=== PATIENT | female | born 1950 | race Two or more races ===

== ENCOUNTER 2020-11-29 05:56 | Emergency (ER) | payer OTHER ==
[~2020-11-29] VITALS: Ht 157.5 cm; Wt 87.1 kg
[2020-11-29 06:03] VITALS: BP 170/70
== END 2020-11-29 08:56 | disposition home or self-care (01) ==
LOC: ER 05:56
DX: Z02.89 Encounter for other administrative examinations (principal); I10 Essential (primary) hypertension; Z90.49 Acquired absence of other specified parts of digestive tract; Z90.710 Acquired absence of both cervix and uterus; Z20.822 Contact with and (suspected) exposure to COVID-19
CPT/HCPCS: 36415; 87426

== ENCOUNTER 2023-08-21 06:00 | Observation (INO) | payer OTHER ==
[~2023-08-21] VITALS: Ht 154.9 cm; Wt 79.7 kg
[2023-08-21] VITALS (13 sets, daily range): BP systolic 100–150; BP diastolic 45–84; PULSE 51–68; RESP 1–20; TEMP 97.4–97.8; O2SAT 95–100
[~2023-08-21 06:00] MED LIST: ACET-1304 PO; ATEN-60 PO; ATOR10TA PO; CHOL100047 PO; GABA-1250 PO; METF-489 PO; MULT-1018 OR; SERT25TA28 PO; TRAZ-228 PO
[2023-08-21] MEDS: TRANEXAMIC ACID 20 ML ONE (06:56)
[2023-08-21] MEDS: VANCOMYCIN HCL 1000 MG VL ONE (06:57)
[2023-08-21] MEDS ORDERED: MORPHINE SULF PF 5 MG/10 ML VIAL ONE (07:00)
[2023-08-21] MEDS ORDERED: KETOROLAC TROMETH 30 MG/ML 1ML VIAL ONE (07:00)
[2023-08-21] MEDS: ceFAZolin 2 GM/D5W50ml 50 ML IV ONE (07:12)
[2023-08-21] MEDS: BUPIVACAINE 0.25% INJ 50ML VIAL ONE (07:12)
[2023-08-21] MEDS: TETRACAINE 1% INJ 2 ML VIAL IJ ONE (07:27)
[2023-08-21] MEDS ORDERED: KETAMINE 50mg/ML 1ml syringe ONE (07:40)
[2023-08-21] MEDS ORDERED: PROPOFOL 10 MG/ML 20 ML IV ONE (07:40)
[2023-08-21] MEDS ORDERED: MIDAZOLAM HCL 2MG/2ML 2ml VIAL (1mg/ml) ONE (07:53)
[2023-08-21] MEDS ORDERED: fentaNYL CITRATE 100 MCG/2 ML VL ONE (07:53)
[2023-08-21] MEDS ORDERED: diphenhdrAMINE HCL 50 MG/1 ML VL IV PRN (09:15)
[2023-08-21] MEDS ORDERED: HYDROmorphone HCL 2 MG/ML VL/or syr IV PRN ×2 (09:15→09:30)
[2023-08-21] MEDS ORDERED: DexAMETHasone SOD PHOS 10MG/1ML VIAL INJ IV PRN (09:15)
[2023-08-21] MEDS ORDERED: NALOXONE HCL 0.4 MG/ML VIAL IV PRN (09:15)
[2023-08-21] MEDS ORDERED: ONDANSETRON HCL 4 MG/2 ML VIAL IV PRN ×2 (09:15→09:30)
[2023-08-21] MEDS ORDERED: NITROGLYCERIN 0.4 MG SL TAB SL PRN (09:30)
[2023-08-21] MEDS ORDERED: MORPHINE SULFATE INJ 2 MG/ml SYRG IV PRN (09:30)
[2023-08-21] MEDS ORDERED: CEFEPIME 1GM/ 50ML 50 ML IV SCH (10:00)
[2023-08-21] MEDS: LACTATED RINGER'S 1,000 ML IV SCH (14:55)
[2023-08-21] MEDS: SODIUM CHLOR 0.9% PF (SALINE LOCK) 10ML VIAL/SYR IV SCH (15:00)
[2023-08-21] MEDS: DOCUSATE SOD 100 MG CAP PO SCH (15:01)
[2023-08-21] MEDS: MULTIPLE VITAMIN TAB PO SCH (15:01)
[2023-08-21] MEDS: ATENOLOL 25 MG TAB PO SCH (15:01)
[2023-08-21] MEDS: ACCU-CHEK COMFORT CURVE STRIP VI SCH (15:02)
[2023-08-21] MEDS ORDERED: ONDANSETRON HCL 4 MG/2 ML VIAL IV ONE (17:29)
[2023-08-21] MEDS: traZODone HCL 50 MG TAB PO SCH (21:52)
[2023-08-21] MEDS: GABAPENTIN 300 MG CAP PO SCH (22:00)
[2023-08-22] VITALS (23 sets, daily range): BP systolic 97–147; BP diastolic 42–91; PULSE 49–79; RESP 16–20; TEMP 97.5–99.7; O2SAT 2–99
[2023-08-22 06:25] LABS: Alanine Aminotransferase 338 U/L (7-40); Albumin 3.3 g/dL (3.2-4.8); Alkaline Phosphatase 186 U/L (46-116); Anion Gap 5 (5-15); Aspartate Aminotransferase 509 U/L (13-40); BUN/Creatinine Ratio 19.7 (10.0-20.0); Blood Urea Nitrogen 12 mg/dL (9-23); Calcium 8.8 mg/dL (8.7-10.4); Carbon Dioxide 27 mmol/L (20-30); Chloride 108 mmol/L (98-107); Glucose 99 mg/dL (74-106); Potassium 3.8 mmol/L (3.5-5.1); Sodium 140 mmol/L (136-145)
[2023-08-22 06:26] LABS: Bilirubin, Total 0.9 mg/dL (0.2-1.0); Total Protein 5.3 g/dL (5.7-8.2)
[2023-08-22] MEDS: ceFAZolin 1GM/50ML 50 ML IV SCH (10:22)
[2023-08-22] MEDS: ENOXAPARIN SOD 40 MG/0.4 ML SYRINGE SC SCH (10:25)
[2023-08-22 10:30] LABS: Basophils # (auto) 0 10 ^3/uL (0-0.2); Basophils % (auto) 0.5 % (0.0-2.0); Eosinophils # (auto) 0.2 10 ^3/uL (0-0.8); Eosinophils % (auto) 3.1 % (0.0-7.0); Hematocrit 31.8 % (36.0-46.0); Hemoglobin 10.7 g/dL (12.2-16.2); Lymphocytes # (auto) 1.1 10 ^3/uL (0.4-5.4); Lymphocytes % (auto) 19.1 % (10.0-50.0); Mean Corpuscular Hemoglobin 31.1 pg (28.0-32.0); Mean Corpuscular Hgb Conc. 33.7 g/dL (32.0-36.0); Mean Corpuscular Volume 92.3 fL (80.0-100.0); Monocytes # (auto) 0.5 10 ^3/uL (0-1.3); Monocytes % (auto) 9.4 % (0.0-12.0); Neutrophils # (auto) 3.7 10 ^3/uL (1.6-8.6); Neutrophils % (auto) 67.9 % (37.0-80.0); Platelet Count (auto) 151 10^3/uL (140-450); Red Blood Cells 3.45 10^6/uL (4.0-5.20); Red Cell Distribution Width 14.7 % (11.8-14.3); White Blood Cell 5.5 10^3/uL (4.4-10.8)
[2023-08-22] MEDS: SERTRALINE HCL 50 MG TAB PO SCH (10:30)
[2023-08-22] MEDS: CHOLECALCIFEROL (VITD3) 1,000UNIT=25mCg TAB PO SCH (10:30)
[2023-08-22] MEDS: metFORMIN HYDROCHLORIDE 500 MG TAB PO SCH (10:31)
[2023-08-22] MEDS: ATORVASTATIN 20 MG TAB PO SCH (10:31)
[2023-08-22] MEDS: CEFEPIME 1GM/ 50ML 50 ML IV SCH (10:47)
[2023-08-22] MEDS: OXYCODONE W/ ACETAMINOPHEN 5/325MG TABLET PO PRN (10:47)
[2023-08-23 01:00] VITALS: BP 129/59; PULSE 61; RESP 16; TEMP 98.2; O2SAT 96
[2023-08-23 05:00] VITALS: BP 154/69; PULSE 63; RESP 18; TEMP 98.7; O2SAT 96
[2023-08-23 08:00] VITALS: BP 145/77; PULSE 67; RESP 18; TEMP 99; O2SAT 99
[2023-08-23 08:05] VITALS: PULSE 61; O2SAT 98
[2023-08-23 13:00] VITALS: BP 133/64; PULSE 61; RESP 14; TEMP 98.5; O2SAT 93
[2023-08-23 16:28] VITALS: BP 133/60; PULSE 65; RESP 18; TEMP 98.9; O2SAT 96
== END 2023-08-23 17:30 | disposition home or self-care (01) ==
LOC: SUR 06:00 → OVERFLOW 09:20 → INTOOBSV 09:20 → WEST WING 13:43 → TELE-WESTW 15:13
PROVIDERS: ADMIT Orthopaedic Surgery Adult Reconstructive Orthopaedic Surgery; ATTEND Orthopaedic Surgery
DX: M17.12 Unilateral primary osteoarthritis, left knee (principal); I10 Essential (primary) hypertension; E78.5 Hyperlipidemia, unspecified; E11.42 Type 2 diabetes mellitus with diabetic polyneuropathy; F41.9 Anxiety disorder, unspecified; F51.04 Psychophysiologic insomnia; Z79.899 Other long term (current) drug therapy; Z98.890 Other specified postprocedural states
CPT/HCPCS: 27447; 36415; 73562; 80053; 82962; 86850; 86900; 86901; 96365; 96366; 96368; 96372; 97110; 97116; 97163; 97530; C1713; C1776; G0378; J0690; J0692; J1650; J1885; J2250; J2270; J2405; J2704; J3010; J3370; J7030; J3490; J7042